=== PATIENT | male | born 1935 | race Caucasian/White ===

== ENCOUNTER 2017-03-14 18:50 | Inpatient (IN) | payer MEDICARE, MEDICAID ==
[~2017-03-14] VITALS: Ht 177.8 cm; Wt 117.1 kg
[2017-03-14 19:07] VITALS: BP 92/65
[2017-03-14 19:32] LABS: BASO % 0.2 % (0.0-1.0); EOS # 0.5 10*3/uL (0.0-0.4); EOS % 3.6 % (1.0-4.0); HEMATOCRIT 42.5 % (42.0-52.0); HEMOGLOBIN 14.2 g/dl (14.0-18.0); IG # 0.1 10*3/uL (0.0-0.1); LYMPH % 7.2 % (27.0-41.0); MEAN CELL VOLUME 90.8 fl (80.0-94.0); MEAN CORPUSCULAR HGB 30.3 pg (27.0-31.0); MEAN CORPUSCULAR HGB CONC 33.4 g/dl (33.0-37.0); MONO # 0.9 10*3/uL (0.1-1.0); MONO % 6.4 % (3.0-9.0); NEUT # 11.9 10*3/uL (2.3-7.9); NEUT % 82.3 % (47.0-73.0); PLATELET COUNT AUTOMATED 126 10*3/uL (130-400); RED BLOOD COUNT 4.68 10*6/uL (4.50-5.90); RED CELL DISTRI WIDTH 13.5 % (0-14.5); WHITE BLOOD COUNT 14.5 10*3/uL (4.8-10.8)
[2017-03-14 19:50] LABS: ALKALINE PHOSPHATASE 105 U/L (45-117); BUN 44 mg/dl (7-24); CARBON DIOXIDE 28 mmol/L (21-32); CHLORIDE 98 mmol/L (98-107); EST GLOM FILT AFRICAN AMERICAN 29 ml/min; GLUCOSE 121 mg/dL (65-99); MAGNESIUM 2.3 mg/dL (1.5-2.1); POTASSIUM 3.6 mmol/L (3.5-5.1); SGOT/AST 59 IU/L (3-35); SGPT/ALT 85 U/L (12-78); SODIUM 136 mmol/L (136-145); TOTAL PROTEIN 7.9 gm/dL (6.4-8.2)
[2017-03-14 19:51] LABS: TROPONIN I < 0.015 ng/ml (<0.045)
[2017-03-14 20:03] LABS: BILIRUBIN 1+ (NEGATIVE); BLOOD 3+ (NEGATIVE); CLARITY SL CLOUDY (CLEAR); COLOR YELLOW (YELLOW); GLUCOSE NEGATIVE (NEGATIVE); KETONE TRACE (NEGATIVE); LEUKO ESTERASE TRACE (NEGATIVE); NITRITE NEGATIVE (NEGATIVE); PROTEIN 2+ (NEGATIVE); SPECIFIC GRAVITY 1.025 (1.005-1.030)
[2017-03-14 20:13] LABS: RBC 41-50 rbc/hpf (0-2)
[2017-03-14 20:14] LABS: URINE REFLEX COMMENT YES (NO)
[2017-03-14 21:30] LABS: LA>2 REFLEX 2 HR DRAW NOW
[2017-03-14 21:49] VITALS: BP 113/69
[2017-03-14 23:19] VITALS: BP 100/53
[2017-03-15 01:01] VITALS: BP 118/71
[2017-03-15 01:10] VITALS: BP 137/59
[2017-03-15 02:25] LABS: CKMB 0.7 ng/ml (0.5-3.6); CPK 82 U/L (39-308)
[2017-03-15 02:27] LABS: TROPONIN I < 0.015 ng/ml (<0.045)
[2017-03-15 04:51] LABS: BASO % 0.2 % (0.0-1.0); EOS # 0.5 10*3/uL (0.0-0.4); HEMATOCRIT 38.4 % (42.0-52.0); HEMOGLOBIN 12.5 g/dl (14.0-18.0); IG # 0.1 10*3/uL (0.0-0.1); LYMPH # 0.8 10*3/uL (1.3-4.4); LYMPH % 7.9 % (27.0-41.0); MEAN CELL VOLUME 92.3 fl (80.0-94.0); MEAN CORPUSCULAR HGB CONC 32.6 g/dl (33.0-37.0); MEAN PLATELET VOLUME 13.5 fl (9.6-12.3); MONO # 0.5 10*3/uL (0.1-1.0); MONO % 4.6 % (3.0-9.0); NEUT # 8.4 10*3/uL (2.3-7.9); NEUT % 81.7 % (47.0-73.0); PLATELET COUNT AUTOMATED 108 10*3/uL (130-400); RED BLOOD COUNT 4.16 10*6/uL (4.50-5.90); RED CELL DISTRI WIDTH 13.5 % (0-14.5); WHITE BLOOD COUNT 10.3 10*3/uL (4.8-10.8)
[2017-03-15 05:07] LABS: CKMB 0.5 ng/ml (0.5-3.6); CPK 74 U/L (39-308)
[2017-03-15 05:08] LABS: ALBUMIN 2.6 gm/dl (3.1-4.5); BILIRUBIN, TOTAL 0.8 mg/dl (0.2-1.0); FREE T4 1.94 ng/dl (0.76-1.46); MAGNESIUM 2.2 mg/dL (1.5-2.1); PHOSPHOROUS 2.5 mg/dL (2.5-4.9); POTASSIUM 3.4 mmol/L (3.5-5.1); TOTAL PROTEIN 6.6 gm/dL (6.4-8.2)
[2017-03-15 05:10] LABS: TROPONIN I < 0.015 ng/ml (<0.045)
[2017-03-15 05:13] LABS: THYROID STIM HORMONE (HS) 0.527 uIU/ml (0.358-4.75)
[2017-03-15 05:22] LABS: INTERNATIONAL NORM RATIO 1.2 (2.0-3.5); PROTHROMBIN TIME 13.4 SECONDS (9.0-12.4)
[2017-03-15 07:50] LABS: FOLIC ACID 14.77 ng/mL (>5.38); VITAMIN D, 25-HYDROXY 20.4 ng/mL (30-100)
[2017-03-15 07:50] LABS: CKMB 0.9 ng/ml (0.5-3.6); CPK 74 U/L (39-308)
[2017-03-15 07:53] LABS: TROPONIN I < 0.015 ng/ml (<0.045)
[2017-03-15 08:00] VITALS: BP 108/62
[2017-03-15] MEDS ORDERED: LOPRESSOR25 MG PO (08:40)
[2017-03-15] MEDS ORDERED: RESTORIL15 MG PO (10:42)
[2017-03-15] MEDS ORDERED: DICLOFENAC SOD75 MG PO (10:43)
[2017-03-15] MEDS ORDERED: HYDR25T PO (10:44)
[2017-03-15] MEDS ORDERED: TERAZOSIN HCL2 M1 PO (10:44)
[2017-03-15] MEDS ORDERED: EZETIMIBE10 M1 PO (10:45)
[2017-03-15 12:00] VITALS: BP 115/62
[2017-03-15 16:00] VITALS: BP 126/66
[2017-03-15 20:00] VITALS: BP 109/53
[2017-03-16] VITALS: BP 128/66
[2017-03-16 06:41] LABS: HEMATOCRIT 36.8 % (42.0-52.0); HEMOGLOBIN 11.9 g/dl (14.0-18.0); MEAN CORPUSCULAR HGB 29.8 pg (27.0-31.0); MEAN CORPUSCULAR HGB CONC 32.3 g/dl (33.0-37.0); MEAN PLATELET VOLUME 13.1 fl (9.6-12.3); PLATELET COUNT AUTOMATED 135 10*3/uL (130-400); WHITE BLOOD COUNT 8.6 10*3/uL (4.8-10.8)
[2017-03-16 07:04] LABS: ATYPICAL LYMPHS 2 % (0-0); EOSINOPHIL # 0.4 10*3/uL (0-0.4); EOSINOPHILS 5 % (1-4); LYMPHOCYTE # 1.3 10*3/uL (1.3-4.4); MONOCYTE # 0.3 10*3/uL (0.1-1.0); MYELOCYTES 1 % (0-0); NEUTROPHIL # 6.5 10*3/uL (2.3-7.9); NEUTROPHILS 75 % (47-73); TOTAL CELLS COUNTED 100 #CELLS
[2017-03-16 07:05] LABS: PLATELET SUFFICIENCY NORMAL (NORMAL)
[2017-03-16 07:13] LABS: PHOSPHOROUS 1.8 mg/dL (2.5-4.9); POTASSIUM 3.7 mmol/L (3.5-5.1)
[2017-03-16 08:00] VITALS: BP 110/89
[2017-03-16 12:00] VITALS: BP 126/54
[2017-03-16 16:00] VITALS: BP 131/71
[2017-03-16 20:00] VITALS: BP 153/78
[2017-03-17] VITALS: BP 151/69
[2017-03-17 08:00] VITALS: BP 111/65
[2017-03-17 12:00] VITALS: BP 112/71
[2017-03-17 16:00] VITALS: BP 127/66
[2017-03-17 20:00] VITALS: BP 109/80
[2017-03-18] VITALS: BP 122/65
[2017-03-18 08:00] VITALS: BP 115/56
[2017-03-18 12:00] VITALS: BP 134/69
[2017-03-18 16:00] VITALS: BP 120/49
[2017-03-18 20:00] VITALS: BP 123/89
[2017-03-19] VITALS: BP 129/63
[2017-03-19 08:00] VITALS: BP 102/70
[2017-03-19 12:00] VITALS: BP 98/68
[2017-03-19] MEDS ORDERED: OXYGEN NAS (13:32)
[2017-03-19 15:50] VITALS: BP 114/61
[2017-03-19 20:00] VITALS: BP 129/73
[2017-03-20] VITALS: BP 126/55
[2017-03-20 07:04] LABS: BUN 17 mg/dl (7-24); CARBON DIOXIDE 31 mmol/L (21-32); CHLORIDE 102 mmol/L (98-107); EST GLOM FILT AFRICAN AMERICAN > 60 ml/min; GLUCOSE 89 mg/dL (65-99); POTASSIUM 3.8 mmol/L (3.5-5.1); SODIUM 139 mmol/L (136-145)
[2017-03-20 08:00] VITALS: BP 144/84
[2017-03-20] MEDS ORDERED: D-1000 185 MG-11 TAB PO (08:09)
[2017-03-20 12:00] VITALS: BP 103/62
== END 2017-03-20 13:18 | disposition home or self-care (01) | DRG 871 ==
LOC: ED 18:50 → 4E 23:08 → EDHOLD 23:08 → 4E 03-15 00:17
PROVIDERS: Emergency Medicine Emergency Medical Services; Hospitalist; Internal Medicine
DX: A41.9 Sepsis, unspecified organism (principal); N17.0 Acute kidney failure with tubular necrosis; E43 Unspecified severe protein-calorie malnutrition; E87.2 Acidosis; D69.6 Thrombocytopenia, unspecified; E67.8 Other specified hyperalimentation; D64.9 Anemia, unspecified; E83.41 Hypermagnesemia; N30.01 Acute cystitis with hematuria; R65.20 Severe sepsis without septic shock; E66.09 Other obesity due to excess calories; I25.10 Atherosclerotic heart disease of native coronary artery without angina pectoris; I10 Essential (primary) hypertension; R73.03 Prediabetes; E87.6 Hypokalemia; R73.9 Hyperglycemia, unspecified; E05.80 Other thyrotoxicosis without thyrotoxic crisis or storm; K52.9 Noninfective gastroenteritis and colitis, unspecified; Z85.46 Personal history of malignant neoplasm of prostate; I25.2 Old myocardial infarction; Z95.5 Presence of coronary angioplasty implant and graft; Z80.8 Family history of malignant neoplasm of other organs or systems; Z82.3 Family history of stroke; Z79.899 Other long term (current) drug therapy; Z79.1 Long term (current) use of non-steroidal anti-inflammatories (NSAID); Z68.34 Body mass index [BMI] 34.0-34.9, adult; Z88.0 Allergy status to penicillin